=== PATIENT | female | born 1935 | race Caucasian/White ===

== ENCOUNTER 2017-04-26 07:34 | Day surgery (SDC) | payer OTHER ==
[~2017-04-26] VITALS: Ht 160 cm; Wt 67.0 kg
[2017-04-26] VITALS (10 sets, daily range): BP systolic 98–111; BP diastolic 50–52; PULSE 54–86; RESP 14–20; TEMP 97.5–98; O2SAT 97–98
[2017-04-26] MEDS ORDERED: CHLORHEXIDINE GLUCONATE 2 % 1 PACK (2 CLOTHS) TOPICAL PRN (08:15)
[2017-04-26] MEDS ORDERED: SODIUM CHLORID 0.9% 500 ML IV PRN (08:15)
[2017-04-26] MEDS ORDERED: METOPROLOL TARTRATE 25 MG TAB PO PRN (08:15)
[2017-04-26] MEDS ORDERED: INSULIN HUMAN REGULAR 1,000 UNITS/10 ML VIAL SQ PRN (08:15)
[2017-04-26] MEDS ORDERED: POVIDONE IODINE 5% (ANTISEPSIS KIT) 4 APPLICATIONS EACH NARE PRN (08:15)
[2017-04-26] MEDS ORDERED: LACTATED RINGER'S 1000 ML IV PRN (08:15)
[2017-04-26 08:24] LABS: AUTOMATED NEUTROPHIL # 4.5 TH/MM3 (1.8-7.7); BASOPHIL % 0.7 % (0.0-2.0); EOSINOPHIL # 0.2 TH/MM3 (0-0.4); EOSINOPHIL % 2.9 % (0.0-4.0); HEMATOCRIT 41.2 % (35.0-46.0); HEMOGLOBIN 13.9 GM/DL (11.6-15.3); LYMPH % 24.1 % (9.0-44.0); LYMPHOCYTE # 1.7 TH/MM3 (1.0-4.8); MEAN CELL VOLUME 92.7 FL (80.0-100.0); MEAN CORPUSCULAR HEMOGLOBIN 31.3 PG (27.0-34.0); MEAN CORPUSCULAR HGB CONC 33.8 % (32.0-36.0); MEAN PLATELET VOLUME 8.5 FL (7.0-11.0); MONOCYTE # 0.6 TH/MM3 (0-0.9); NEUT % 64.3 % (16.0-70.0); PLATELET COUNT 212 TH/MM3 (150-450); RED BLOOD COUNT 4.44 MIL/MM3 (4.00-5.30); RED CELL DISTRIBUTION WIDTH 18.4 % (11.6-17.2); WHITE BLOOD COUNT 7.1 TH/MM3 (4.0-11.0)
[2017-04-26] MEDS ORDERED: LORazepam 1 MG TAB SL SCH (08:30)
[2017-04-26] MEDS ORDERED: LEVOFLOXACIN 500 MG PREMIX INJ 100 ML IV SCH (08:30)
[2017-04-26] MEDS: SODIUM CHLORID 0.9% 500 ML INJ 500 ML IV SCH (08:30)
[2017-04-26] MEDS ORDERED: FURO20TA PO (08:36)
[2017-04-26] MEDS ORDERED: LIOT25TA3 PO (08:36)
[2017-04-26] MEDS ORDERED: APIX5TAB PO (08:36)
[2017-04-26] MEDS ORDERED: AMLO5TAB2 PO (08:36)
[2017-04-26] MEDS ORDERED: RAMI10CA PO (08:36)
[2017-04-26] MEDS ORDERED: TAMS5CAP PO (08:36)
[2017-04-26] MEDS ORDERED: METO25TA3 PO (08:36)
[2017-04-26] MEDS ORDERED: LORA-392 PO (08:36)
[2017-04-26] MEDS ORDERED: PROT40TA PO (08:36)
[2017-04-26] MEDS ORDERED: SIMV20TA PO (08:36)
[2017-04-26 08:38] LABS: PROTHROMBIN TIME - PATIENT 11.5 SEC (9.8-11.6)
[2017-04-26 08:43] LABS: INTERNATIONAL NORMALIZED RATIO 1.1 RATIO
[2017-04-26 08:59] LABS: BICARBONATE 27.9 MEQ/L (21.0-32.0); CALCIUM 9.9 MG/DL (8.5-10.1); CREATININE 1.25 MG/DL (0.50-1.00)
[2017-04-26] MEDS ORDERED: HEPARIN-NS/PF INJ 2,000 ML ONE (10:04)
[2017-04-26] MEDS ORDERED: ISOPROTERENOL HCL 1 MG/5 ML AMP ONE (10:26)
[2017-04-26] MEDS ORDERED: HEPARIN-D5W 25,000 U/250 ML 250 ML ONE (10:26)
[2017-04-26] MEDS ORDERED: HEPARIN SODIUM - IV 10,000 UNITS/10 ML VIAL ONE (10:27)
[2017-04-26] MEDS ORDERED: PROTAMINE SULFATE 50 MG/5 ML VIAL ONE (10:27)
[2017-04-26] MEDS ORDERED: PROPOFOL 200 MG/20 ML AMP IV ONE (12:00)
[2017-04-26] MEDS ORDERED: LIDOCAINE HCL 1% PF 5 ML SYRINGE OTHER ONE (12:00)
[2017-04-26] MEDS ORDERED: GLYCOPYRROLATE 1 MG/5 ML SYRINGE IV PUSH ONE (12:00)
[2017-04-26] MEDS ORDERED: ePHEDrine/NS 25 MG/5 ML SYRINGE IV ONE (12:00)
[2017-04-26] MEDS ORDERED: ROCURONIUM INJ 50 MG/5 ML SYRINGE IV PUSH ONE (12:00)
[2017-04-26] MEDS ORDERED: ONDANSETRON HCL 4 MG/2 ML VIAL IV ONE (12:00)
[2017-04-26] MEDS ORDERED: NEOSTIGMINE 5 MG/5 ML SYRINGE IV PUSH ONE (12:00)
[2017-04-26] MEDS ORDERED: PHENYLEPH/NS 1000 MCG/10 ML SYR IV ONE (12:00)
[2017-04-26] MEDS ORDERED: DEXAMETHASONE SOD PHOS 4 MG/ML VIAL IV ONE (12:00)
[2017-04-26] MEDS ORDERED: FUROSEMIDE 40 MG/4 ML VIAL ONE (12:45)
[2017-04-26] MEDS ORDERED: DO NOT ADM ANY ANTICOAGULANT DRUGS PRN (13:00)
--- NOTE | 2017-04-26 13:00 | CATHPROC ---
[facility] HIS Report Study Information Study Number Admission Scheduled Start Study Start [id number] Apr 26 2017 7:34AM 04/26/2017 Apr 26 2017 7:59AM [place] Service Electrophysiology Study Admit Source Facility Department Other [facility] - Volleyball Assistant Coach Physician and Clinical Staff Initial Quintin Fields Shield Installer Marquita Puente,CLOTHES MARKER TECH2 Other Anesthesia, RESTAURANT BUSSER Recorder Shireen Tay,RN Recorder Jing Holguin,RAJI Scrub Deena Mayfield,RT(R) TECH2 Procedures Performed Procedure Location (Site) Vessel Name Ablation Procedure ICE CATHETER INSERT Fem Vein (left) Femoral Vein RF Ablation LT. ATRIUM LT. ATRIUM Equipment Time Manager Payment Description Size Mfg Part Number Used/Scraped NEEDLE, TRANSSEPTAL NRG 98 [id number] 10:00 [facility] Used C1 *[id number] [employer]/ EP [id number] 10:00 KIT, TRANSDUCER / AFIB Used PACER *[id number] CATHETER, TACTICATH ABLAT BUNDLE 10:00 BUNDLE-ST. DAY Used 65 BUNDLE *[id number]- BUNDLE [id number] CATHETER, FR7 OPTIMA SPIRAL 10:00 BUNDLE-ST. DAY FR7 *[id number]- Used BUNDLE BUNDLE [id number] 10:00 BUNDLE-ST. DAY CATHETER, JSN, QUAD BUNDLE FR 5 *[id number]- Used BUNDLE [id number] 10:00 BUNDLE-ST. DAY CATHETER, JSN, QUAD BUNDLE FR 5 *[id number]- Used BUNDLE [id number] SET, COOL POINT TUBING 10:00 BUNDLE-ST. DAY *[id number]- Used BUNDLE BUNDLE SHEATH, FR8.5 STEERABLE SM 10:00 BUNDLE-ST. DAY 71CM [id number] Used 71CM BUNDLE COVER, TRANSDUCER CABLE 612-113 10:00 [employer] Used ACUNAV *[id number] 10:00 CORDIS/PACER SHEATH, FR10 FREYA 11CM FR 10 Used *[id number] 10:00 CORDIS/PACER SHEATH, FR9 FREYA 11CM FR 9 [id number] Used [id number] 10:00 [employer] PACK, CCL CUSTOM * Used *[id number] 10:00 MEDLINE PACER MOURA, LIMB * 2530 *[id number] Used [id number] 10:00 [employer] MEDICAL SHEATH, FR4.5 PRELUDE 11CM FR 4.5 Used [id number] 10:00 NAMIC TUBING, HIGH PRESSURE 48" 48" Used *[id number] 10:00 NAMIC TUBING, HIGH PRESSURE 48" 48" Used *[id number] 10:00 [facility] BLANKET,WARM AIR CCL * Used *[id number] [id number] 10:00 [facility] MEDICAL ELECTRODE KIT, ANDREW X SURFACE * Used *[id number] 10:00 [facility] DAY MEDICAL SHEATH, EPS, FR6 FAST CATH FR 6 Used *[id number] 10:00 [facility]. DAY MEDICAL SHEATH, EPS, FR7 FAST CATH FR 7 [id number] Used 004333 10:00 [facility]. DAY MEDICAL SHEATH, EPS, FR8 FAST CATH FR 8 Used *[id number] CATHETER, ACUNAV FR10 ICE [id number] 11:08 RAFAELA FR 10 Used (RAFAELA) *[id number] [facility] PAD, ELECTROSURGICAL 10:00 * [id number] *[id number] Used SURGICAL GROUNDING (BLUE) History: Allergies Allergy Reaction Sulfa (Sulfonamide Antibiotics) Blurred Vision History: Risk Factors Hypertension Previous Heart Failure Yes Yes Prior PCI Prior CABG Yes Yes Labs Hgb (g/dl) Hct (%) RBC (MIL/MM3) WBC (l/cumm) Platelets (thousands) 11.60-17.00 35.00-51.00 4.00-5.90 4.00-11.00 150.00-450.00 13.0 41 4.4 7.1 212 Glucose (mg/dl) BUN (mg/dl) Creatinine (mg/dl) BUN:Creatinine (1:x) 74.00-106.00 7.00-18.00 0.50-1.30 10.00-20.00 88 22 1.2 18.3 Na (meq/l) K (meq/l) 136.00-145.00 3.50-5.10 137 4.7 INR (PTT:PT) 0.90-1.10 1.1 Medication Medication Total Dose (Bolus/Oral) Medication Total Dosage/Unit 1% XYLOCAINE 40 mL HEPARIN 34082 units LASIX 40 mg PROTAMINE 40 mg Medications (Bolus/Oral) Medication Time Given Dosage/Unit Administered By Reason 1% XYLOCAINE 04/26/2017 10:58:52 AM 20 mL Quintin Tom 20 mL 1% XYLOCAINE given in lab by Quinitn Tom in Left Groin via Subcutaneous. Ordered by Sean Tom. 1% XYLOCAINE 04/26/2017 11:03:41 AM 20 mL Quintin Tom 20 mL 1% XYLOCAINE given in lab by Quintin Tom in Right Groin via Subcutaneous. Ordered by Melodie Tom. HEPARIN 04/26/2017 11:11:17 AM 30834 units Anesthesia, RESTAURANT BUSSER As per physicians v erbal order 70527 units HEPARIN given in lab by Anesthesia, RESTAURANT BUSSER via Peripheral IV. Ordered by Quintin Tom. [place] son: As per physicians verbal order. HEPARIN 04/26/2017 11:56:22 AM 1000 units Anesthesia, RESTAURANT BUSSER As per physicians ve rbal order 1000 units HEPARIN given in lab by Anesthesia, RESTAURANT BUSSER via Peripheral IV. Ordered by Quintin Tom. Reas on: As per physicians verbal order. LASIX 04/26/2017 12:44:57 PM 40 mg Anesthesia, RESTAURANT BUSSER As per physicians verba l order 40 mg LASIX given in lab by Anesthesia, RESTAURANT BUSSER via Peripheral IV. Ordered by Quintin Tom. Reason: As per physicians verbal order. PROTAMINE 04/26/2017 12:48:36 PM 40 mg Anesthesia, RESTAURANT BUSSER As per physicians marylu bal order 40 mg PROTAMINE given in lab by Anesthesia, RESTAURANT BUSSER via Peripheral IV. Ordered by Quintin Tom. Reason: As per physicians verbal order. Medication (Drip) Medication Time Given Dosage/Unit Concentration/Unit Diluent (ml) Solution HEPARIN DRIP 04/26/2017 12:10:17 PM 1000 units/hr 89985 units 250 D5W 1000 units/hr HEPARIN DRIP given in lab by Anesthesia, RESTAURANT BUSSER via Peripheral IV. Pump/Drip Flow = 10 ml /hr using D5W [place] [address] units in 250 ml. Ordered by Quintin Tom. Reason: As per physicians verbal order. ISUPREL 04/26/2017 12:25:24 PM 20 mcg/min 1 mg 250 NaCl .9 20 mcg/min ISUPREL given in lab by Anesthesia, RESTAURANT BUSSER via Peripheral IV. Pump/Drip Flow = 300 ml/hr usi ng NaCl .9 with a concentration of 1 mg in 250 ml. Ordered by Quintin Tom. Reason: As per physicians verbal order. Initial Case Assessment Cardiovascular HR Rhythm NIBP Chest Pain 104 af 110/61 0 Edema Present Skin color Skin None Normal Warm Dry Circulatory - Right Pulses Dorsalis Pedis 1 Scale (0,1,2,3,4,d) Circulatory - Left Pulses Dorsalis Pedis 1 Scale (0,1,2,3,4,d) Circulatory - Lower Extremities Color Lower Right Color Lower Left Normal Normal Neurological State Oriented to time-place- Alert Moves all extremities person Respiration - General Respiration Rate SpO2 (%) (B/min) 16 93 Final Case Assessment Cardiovascular HR Rhythm NIBP Chest Pain 86 SR 131/53 0 Edema Present Skin color Skin None Normal Warm Dry Circulatory - Right Pulses Dorsalis Pedis 1 Scale (0,1,2,3,4,d) Circulatory - Left Pulses Dorsalis Pedis 1 Scale (0,1,2,3,4,d) Circulatory - Lower Extremities Color Lower Right Color Lower Left Normal Normal Neurological State Oriented to time-place- Lethargic Moves all extremities person Respiration - General Respiration Rate SpO2 (%) O2 (lpm) (B/min) 16 96 3 Chronological Log Time Study Chronological Log 9:39:31 Patient arrived via Bed. 9:39:32 Patient Name, D.O.B, / Armband Verified By R.N. 9:39:32 Consent signed by the physician and the patient and verified by the Volleyball Assistant Coach staff. 9:39:33 Pre-op and post- op instructions given; patient acknowledges understanding of instructions. 9:39:33 Verbal Stimulation=2 Physical Stimulation=2 Airway=2 Respiration=2 TOTAL=8. (0=absent, 1=li mited, 2=present) 9:39:35 Patient has been NPO for More than 6Hrs. 9:39:36 Skin Breakdown- none per pt 9:39:39 Patient Warmer Placed on the Table. 9:39:40 Disposable Defibrillator Pads Placed On Patient. 9:39:40 Coleman Prominences Protected 9:39:41 A # 20 IV was noted in the Antecubital (right). Grade = 0 0.9% NaCl @ kvo 9:39:42 A # 20 IV was noted in the Hand (left). Grade = 0 0.9% NaCl @ kvo 9:39:43 History and physical on the chart. 9:45:00 A 14fr tom catheter was inserted in DOCU. Levaquin infusing prior to arrival. Assessment: Initial Case, PZ=145 BPM, Rhythm=af, QSGU=496/61 mmhg, Chest Pain=0, Edema=None, Co janie=Normal, Skin = Warm, Dry Right Pulses: Maurice Ped=1 Left Pulses: Maurice Ped=1 10:00:09 Lower Right Extremities: Color=Normal Lower Left Extremities: Color=Normal Neurological: State=Alert, Ox3, REINOSO Respiration: Resp=16 B/min, SpO2=93 % 10:02:25 Table restraints applied according to hospital policy 10:14:07 Bilateral groins prepped with 2% chlorhexidine, and draped after a 3 minute waiting time. 10:15:59 Reference ECG taken 10:20:15 Anesthesia at bedside. Assumes care of patient. Flaco 10:43:42 MD paged 10:44:38 Pt intubated by RESTAURANT BUSSER for procedure. Anesthesiologist present. 10:50:58 MD arrived. Time Out. Correct patient, procedure, procedure equipment, site and side verified with physicia n present. Time 10:55:00 concurred by MD, individual staff and RESTAURANT BUSSER. Time Out #2 - Consents verified, patient in correct position, all results are labled and displa yed, safety precautions 10:55:29 taken, antibiotics administered. Time out concurred by MD, individual staff and RESTAURANT BUSSER in procedu re 10:55:52 Case Start 10:55:59 Darren in progress. 10:58:32 Darren complete. EP study commenced. 10:58:52 20 mL 1% XYLOCAINE given in lab by Quintin Tom in Left Groin via Subcutaneous. Ordered by Quintin Tom. 10:59:14 Vascular access was obtained in the Fem Vein (left). 10:59:23 Vascular access was obtained in the Fem Vein (left). 10:59:27 Vascular access was obtained in the Fem Vein (left). 10:59:29 Vascular access was obtained in the Fem Art (left). 10:59:46 A SHEATH, FR4.5 PRELUDE 11CM FR 4.5 was advanced into the Fem Art (left) using the Modified Seldinger technique. 11:00:16 A SHEATH, EPS, FR6 FAST CATH FR 6 was advanced into the Fem Vein (left) using the Modified Seldinger technique. 11:00:41 A SHEATH, EPS, FR7 FAST CATH FR 7 was advanced into the Fem Vein (left) using the Modified Seldinger technique. 11:00:44 A SHEATH, FR10 FREYA 11CM FR 10 was advanced into the Fem Vein (left) using the Modified S eldinger technique. 11:03:41 20 mL 1% XYLOCAINE given in lab by Quintin Tom in Right Groin via Subcutaneous. Ordered b Quintin Castillo. 11:04:38 Vascular access was obtained in the Fem Vein (right). 11:04:42 A SHEATH, EPS, FR8 FAST CATH FR 8 was advanced into the Fem Vein (right) using the Modified Seldinger technique. A CATHETER, JSN, QUAD BUNDLE FR 5 was advanced vis Fem Vein (right) and placed in the CS. Place ment was 11:06:02 visually confirmed under fluoroscopy. A CATHETER, JSN, QUAD BUNDLE FR 5 was advanced vis Fem Vein (right) and placed in the HIS. Plac ement was ::17 visually confirmed under fluoroscopy. 11:07:02 CATHETER, ACUNAV FR10 ICE (Results [employer]) FR 10 Was Postioned. A SHEATH, FR8.5 STEERABLE SM 71CM BUNDLE 71CM was exchanged in the Fem Vein (right). This was n ecessary in :08:42 order for catheter support. 11:10:12 Patten needle in. 11:11:00 A eps was advanced to the right atrium and passed through the septal wall to the left atriu m. 11:11:03 [place]. 79072 units HEPARIN given in lab by Anesthesia, RESTAURANT BUSSER via Peripheral IV. Ordered by Aiden Tom Reason: As per ::17 physicians verbal order. A CATHETER, FR7 OPTIMA SPIRAL BUNDLE FR7 was advanced vis Fem Vein (right) and placed in the LA . Placement 11::42 was visually confirmed under fluoroscopy. Mapping in progress. 11:16:13 Activated Clotting Time Drawn 11:24:51 ACT (Normal Range 90-180) = 383 11:26:15 Mapping complete. Catheter was removed A CATHETER, TACTICATH ABLAT 65 BUNDLE was advanced vis Fem Vein (right) and placed in the LA. P lacement was :26:24 visually confirmed under fluoroscopy. 11:28:06 RF Ablation of the LT. ATRIUM with a CATHETER, TACTICATH ABLAT 65 BUNDLE. 11:49:30 Activated Clotting Time Drawn 11:55:40 ACT (Normal Range 90-180) = 341 1000 units HEPARIN given in lab by Anesthesia, RESTAURANT BUSSER via Peripheral IV. Ordered by Quintin Tom . Reason: As per 11:56:22 physicians verbal order. 12:03:01 Activated Clotting Time Drawn 12:09:07 ACT (Normal Range 90-180) = 376 1000 units/hr HEPARIN DRIP given in lab by Anesthesia, RESTAURANT BUSSER via Peripheral IV. Pump/Drip Flow = 10 ml/hr using 12:10:17 [place] [address] units in 250 ml. Ordered by Quintin Tom. Reason: As per lety wilson verbal order. 12:21:17 Rhythm changed to SB/SR. Ablation complete. 20 mcg/min ISUPREL given in lab by Anesthesia, RESTAURANT BUSSER via Peripheral IV. Pump/Drip Flow = 300 ml/ hr using NaCl .9 12:25:24 with a concentration of 1 mg in 250 ml. Ordered by Quintin Tom. Reason: As per physicians marylu bal order. 12:36:55 Isuprel drip discontinued. 12:43:07 All catheters were removed 12:43:54 Heparin drip stopped. 40 mg LASIX given in lab by Anesthesia, RESTAURANT BUSSER via Peripheral IV. Ordered by Quintin Tom. Reaso n: As per physicians 12:44:57 verbal order. 12:44:58 Activated Clotting Time Drawn 12:47:03 ACT (Normal Range 90-180) = 146 12:48:02 PACU called. Spoke to Deena. 12:48:10 Bedside Report will be given. 40 mg PROTAMINE given in lab by Anesthesia, RESTAURANT BUSSER via Peripheral IV. Ordered by Quintin Tmo. R rick: As per 12:48:36 physicians verbal order. 12:48:41 Sheath(s) left in place, will be removed in PACU 12:48:42 Sterile dressing applied to sites bilaterally 12:49:52 Pt extubated by RESTAURANT BUSSER to supplemental O2 @ 3l/min NC. Pt breathing spontaneously and indepen dently. 12:50:40 Case End 12:51:43 No case complications noted. 12:51:49 Cine recording checked. 12:53:03 Defibrillator and ground pads removed. Skin intact. Assessment: Final Case, HR=86 BPM, Rhythm=SR, HRQG=870/53 mmhg, Chest Pain=0, Edema=None, Color =Normal, Skin = Warm, Dry Right Pulses: Maurice Ped=1 Left Pulses: Maurice Ped=1 13:00:00 Lower Right Extremities: Color=Normal Lower Left Extremities: Color=Normal Neurological: State=Lethargic, Ox3, REINOSO Respiration: Resp=16 B/min, SpO2=96 %, O2=3 lpm Patient moved to stretcher. Groin sites clear/intact, sheaths secured. VS stable. Portable sherry tors and O2 applied by 13:04:00 NC for transport. Pt transported via bed to PACU with RESTAURANT BUSSER and tech, breathing independently and in stable condit ion on portable oxygen 13:05:00 and monitors. 14:45:09 Ablation procedure performed: AFIB. 14:45:15 EP Procedure was performed. End Study - Contrast Media Used In Study Contrast Total Opened (mL) Total Used (mL) Total Wasted (mL) Unspecified 0 0 0 End Study - Maximum Contrast Load Max Contrast Load (mL) 279.2 End Study - Radiation Exposure Fluoro Time (minutes) 0.8 End Study - Patient Disposition Complications Transferred To Interventional Outcome No Telemetry Bed successful
[2017-04-26] MEDS ORDERED: LORazepam 2 MG/ML VIAL IV PUSH PRN (15:00)
[2017-04-26] MEDS ORDERED: BACITRACIN OINT 0.9 GM PKT TOP ONE (15:00)
[2017-04-26] MEDS ORDERED: oxyCODONE/ACETAMINOPHEN 5 MG/325 MG TAB PO PRN ×2 (15:00)
[2017-04-26] MEDS ORDERED: ONDANSETRON HCL 4 MG/2 ML VIAL IV PUSH PRN (15:00)
[2017-04-26] MEDS ORDERED: ATROPINE SULFATE 1 MG/ML VIAL IV PUSH PRN (15:00)
[2017-04-26] MEDS ORDERED: SODIUM CHLOR 0.9% 250 ML INJ 250 ML IV PRN (15:00)
[2017-04-26] MEDS ORDERED: LIDOCAINE HCL 1% 50 ML VIAL INFIL PRN (15:00)
[2017-04-26] MEDS ORDERED: LORazepam 0.5 MG TAB PO PRN (15:00)
--- NOTE | 2017-04-26 16:06 | EKG ---
Date Performed: 04/26/2017 Time Performed: 15:01:57 PTAGE: 81 years EKG: Sinus rhythm WITH OCCASIONAL SUPRAVENTRICULAR PREMATURE COMPLEXES NONSPECIFIC T-WAVE ABNORMALITY BORDERLINE ECG PREVIOUS TRACING : 04/26/2017 08.27 Compared to the previous tracing a fib no longer present DOCTOR: Remi Jimenes Interpretating Date/Time 04/26/2017 16:05:45
--- NOTE | 2017-04-26 16:37 | EKG ---
Date Performed: 04/26/2017 Time Performed: 08:27:30 PTAGE: 81 years EKG: Atrial fibrillation. Possible anterior infarct - age undetermined Inferior/lateral T wave c hanges are nonspecific Abnormal ECG NO PREVIOUS TRACING Clinical correlation is recommended DOCTOR: Harsha Zabala Interpretating Date/Time 04/26/2017 16:37:32
[2017-04-26] MEDS: APIXABAN 5 MG TABLET PO SCH (20:59)
[2017-04-26] MEDS: TAMSULOSIN HCL 0.4 MG CAP PO SCH ×2 (20:59→21:00)
[2017-04-26] MEDS: METOPROLOL TARTRATE 25 MG TAB PO SCH (20:59)
[2017-04-27] VITALS (9 sets, daily range): BP systolic 114–133; BP diastolic 63–69; PULSE 57–86; RESP 17–20; TEMP 97.7–98.4; O2SAT 94–96
[2017-04-27] MEDS: SODIUM CHLORID 0.9% 500 ML INJ 500 ML IV SCH (01:10)
[2017-04-27] MEDS ORDERED: LIOTHYRONINE SODIUM 25 MCG TAB PO SCH (06:00)
[2017-04-27 07:15] LABS: INTERNATIONAL NORMALIZED RATIO 1.1 RATIO; PROTHROMBIN TIME - PATIENT 11.4 SEC (9.8-11.6)
--- NOTE | 2017-04-27 08:11 | PD.CARD.PN ---
Subjective Subjective Remarks Feels okay. Objective Medications Current Medications Medications (Trade) Dose Ordered Sig/Vishnu Route Start Time Stop Time Status Last Admin Lactated Ringer's 1,000 ml @ 30 mls/hr Q24H PRN IV 04/26/17 08:15 04/29/17 08:14 Sodium Chloride 500 ml @ 30 mls/hr [id number] PRN IV 04/26/17 08:15 04/29/17 08:14 (Lopressor) 25 mg VOCATIONAL COUNSELOR PRN PO 04/26/17 08:15 04/29/17 08:14 (Betadine 5% Antisepsis Kit) 1 applic VOCATIONAL COUNSELOR PRN EACH NARE 04/26/17 08:15 04/29/17 08:14 04/26/17 09:10 (Chlorhexidine 2% Cloth) 3 pack VOCATIONAL COUNSELOR PRN TOPICAL 04/26/17 08:15 04/29/17 08:14 04/26/17 09:10 (NovoLIN R INJ) See Protocol Table ... VOCATIONAL COUNSELOR PRN SQ 04/26/17 08:15 04/29/17 08:14 Sodium Chloride 500 ml @ 30 mls/hr [id number] IV 04/26/17 08:30 04/26/17 08:30 (Ativan) 1 mg VOCATIONAL COUNSELOR SL 04/26/17 08:30 04/29/17 08:29 Levofloxacin/ Dextrose 100 ml @ 100 mls/hr VOCATIONAL COUNSELOR IV 04/26/17 08:30 04/29/17 08:29 04/26/17 09:08 (Percocet 5-325 Mg) 1 tab Q4H PRN PO 04/26/17 15:00 (Percocet 5-325 Mg) 2 tab Q4H PRN PO 04/26/17 15:00 (Ativan Inj) 0.5 mg UNSCH PRN IV PUSH 04/26/17 15:00 04/27/17 14:59 (Atropine Inj) 0.5 mg UNSCH PRN IV PUSH 04/26/17 15:00 Sodium Chloride 250 ml @ 500 mls/hr ONCE PRN IV 04/26/17 15:00 04/27/17 14:59 (Zofran Inj) 4 mg Q4H PRN IV PUSH 04/26/17 15:00 (Xylocaine 1% Inj (50 ml)) 10 ml UNSCH PRN INFIL 04/26/17 15:00 04/27/17 14:59 (Norvasc) 5 mg DAILY PO 04/27/17 09:00 (Eliquis) 5 mg BID PO 04/26/17 21:00 04/26/17 20:59 (Lasix) 20 mg DAILY PO 04/27/17 09:00 (Cytomel) 25 mcg DAILY@0600 PO 04/27/17 06:00 04/27/17 06:32 (Ativan) 0.5 mg DAILY PRN PO 04/26/17 15:00 (Lopressor) 25 mg BID PO 04/26/17 21:00 04/26/17 20:59 (Protonix) 40 mg DAILY PO 04/27/17 09:00 (Flomax) 0.4 mg HS PO 04/26/17 21:00 (Altace) 10 mg DAILY PO 04/27/17 09:00 (Pravachol) 40 mg DAILY PO 04/27/17 09:00 Miscellaneous Information ALL NURSING DEPARTME... UNSCH PRN .XX 04/26/17 13:00 04/27/17 12:59 Vital Signs / I&O Vital Signs Date Time Temp Pulse Resp B/P (MAP) Pulse Ox O2 Delivery O2 Flow Rate FiO2 04/27/17 07:37 Room Air 2.00 04/27/17 07:37 97.9 79 17 127/69 (88) 94 04/27/17 06:00 70 04/27/17 05:00 68 04/27/17 04:00 97.7 86 20 133/66 (88) 96 04/27/17 04:00 73 04/27/17 04:00 91 Room Air 04/27/17 03:00 70 04/27/17 02:00 66 04/27/17 01:00 76 04/27/17 00:00 98.4 57 20 114/63 (80) 94 04/27/17 00:00 72 04/26/17 23:00 68 04/26/17 22:00 68 04/26/17 21:00 64 04/26/17 20:00 97.5 54 20 98/52 (67) 98 04/26/17 20:00 60 04/26/17 19:00 62 04/26/17 18:00 76 04/26/17 17:00 66 04/26/17 16:00 72 04/26/17 15:39 64 04/26/17 15:30 97.8 66 17 109/54 (72) 94 Nasal Cannula 2 04/26/17 15:00 67 16 102/56 (71) 93 Nasal Cannula 2 04/26/17 14:15 65 16 103/53 (70) 93 Nasal Cannula 2 04/26/17 14:00 67 17 102/54 (70) 93 Nasal Cannula 2 04/26/17 13:45 67 17 106/53 (70) 93 Nasal Cannula 2 04/26/17 13:30 72 17 121/59 (79) 94 Nasal Cannula 2 04/26/17 13:13 97.7 72 17 118/58 (78) 93 Nasal Cannula 2 04/26/17 08:15 98.0 86 14 111/50 (70) 97 I/O 04/26/17 04/26/17 04/26/17 04/27/17 04/27/17 04/27/17 07:00 15:00 23:00 07:00 15:00 23:00 Intake Total 900 ml 350 ml 960 ml Output Total 200 ml 500 ml Balance 700 ml -150 ml 960 ml Intake Oral 350 ml 960 ml Other 900 ml Output Urine Total 200 ml 500 ml # Voids 1 Physical Exam GENERAL: Well-nourished, well-developed patient. SKIN: Warm and dry. Groin site soft without bruising or bleeding. HEAD: Normocephalic. EYES: No scleral icterus. No injection or drainage. NECK: Supple, trachea midline. No JVD or lymphadenopathy. CARDIOVASCULAR: Regular rate and rhythm without murmurs, gallops, or rubs. RESPIRATORY: Breath sounds equal bilaterally. No accessory muscle use. GASTROINTESTINAL: Abdomen soft, non-tender, nondistended. EXTREMITIES: No cyanosis, or edema. NEUROLOGICAL: Awake, alert, and oriented x 3. Non-focal. Laboratory Laboratory Tests Test 04/27/17 06:35 Prothrombin Time 11.4 SEC Prothromb Time International Ratio 1.1 RATIO Activated Partial Thromboplast Time 24.2 SEC Assessment and Plan Problem List: (1) Atrial fibrillation ICD Codes: I48.91 - Unspecified atrial fibrillation Plan: NSR on telemetry s/p ablation. (2) S/P ablation of atrial fibrillation ICD Codes: Z98.890 - Other specified postprocedural states; Z86.79 - Personal history of other diseases of the circulatory system Plan: Groin sites stable, discharge home, continue LifeVest. Follow-up with Dr. perkins in 3 weeks per my discussion with him. Continue corona. Karol Isabel Apr 27, 2017 08:11
[2017-04-27] MEDS ORDERED: PRAVASTATIN SOD 40 MG TAB PO SCH (09:00)
[2017-04-27] MEDS ORDERED: RAMIPRIL 5 MG CAP PO SCH (09:00)
[2017-04-27] MEDS ORDERED: amLODIPine BESYLATE 5 MG TAB PO SCH (09:00)
[2017-04-27] MEDS ORDERED: PANTOPRAZOLE SOD 40 MG DELAYED RELEASE TAB PO SCH (09:00)
[2017-04-27] MEDS ORDERED: FUROSEMIDE 20 MG TAB PO SCH (09:00)
[2017-04-27] MEDS: METOPROLOL TARTRATE 25 MG TAB PO SCH (09:59)
[2017-04-27] MEDS: APIXABAN 5 MG TABLET PO SCH (09:59)
--- NOTE | 2017-04-27 21:19 | EKG ---
Date Performed: 04/27/2017 Time Performed: 03:57:54 PTAGE: 81 years EKG: Sinus rhythm Normal ECG PREVIOUS TRACING : 04/26/2017 15.01 Compared to prior tracing no significant change DOCTOR: Remi Jimenes Interpretating Date/Time 04/27/2017 21:17:40
== END 2017-04-27 10:20 | disposition home or self-care (01) ==
LOC: HCAT 07:34 → HDIC 07:34 → HCIS 15:37 → HCAT 04-27 10:20
PROVIDERS: ATTEND Internal Medicine Interventional Cardiology
DX: I48.91 Unspecified atrial fibrillation (principal); I10 Essential (primary) hypertension; I50.9 Heart failure, unspecified; Z79.01 Long term (current) use of anticoagulants
CPT/HCPCS: 00537; 80048; 85002; 85025; 85610; 85730; 86850; 86900; 86901; 93005; 93613; 93623; 93656; 93662; C1730; C1731; C1732; C1759; C1766; C2630; J1644; J1940; J1956; J2720; J3010; J7040; J1100; J2370; J2405; J2710